=== PATIENT | female | born 1965 | race American Indian/Alaskan Native ===

== ENCOUNTER → 2020-07-02 10:58 | Outpatient (BNVA) | payer OTHER, SELFPAY | PROVIDERS: PCP Nurse Practitioner Family; Visit Provider Internal Medicine | DX: M25.50 Pain in unspecified joint (principal); Z11.1 Encounter for screening for respiratory tuberculosis; Z11.59 Encounter for screening for other viral diseases; R76.8 Other specified abnormal immunological findings in serum | CPT/HCPCS: 99204 ==

== ENCOUNTER 2020-07-02 13:03 | Outpatient (CLI) | payer OTHER, SELFPAY ==
--- NOTE | 2020-07-02 13:10 | XR_ITS ---
WS: [id number] TECHNIQUE: 2 views of the right hand CLINICAL INFORMATION: M25.50 - Pain in unspecified joint COMPARISON: None. FINDINGS: Normal metacarpals. Normal MCP joint. Metacarpal heads are normal in appearance. Mild IP joint narrow ing.. No evidence of acute fracture or dislocation. Radiocarpal joint: Mild degenerative narrowing Carpal bones: Mild degenerative narrowing at the first CMC. XR/XR hand RT 2V [id number] IMPRESSION: 1. Mild degenerative arthritis as described above. No significant erosive obrien ges.
--- NOTE | 2020-07-02 13:10 | XR_ITS ---
WS: [id number] CERVICAL SPINE FLEXION EXTENSION TECHNIQUE: 3 views of the cervical spine: lateral neutral, flexion and extension views. CLINICAL INFORMATION: M25.50 - Pain in unspecified joint COMPARISON: None. FINDINGS: Straightening of the normal cervical lordosis. Mild spondylitic changes. Mild disc space narrowing at C5-C6 and C6-C7. Normal prevertebral soft tissues. Normal C1-C2 articulation. No instability on flex ion extension. Posterior elements are normal. No other significant findings. XR/XR cervical spine fl/ex [id number] IMPRESSION: No instability on flexion extension.
--- NOTE | 2020-07-02 13:10 | XR_ITS ---
WS: [id number] TECHNIQUE: 2 views of the left hand CLINICAL INFORMATION: M25.50 - Pain in unspecified joint COMPARISON: None. FINDINGS: Normal metacarpals. Normal MCP joint. Metacarpal heads are normal in appearance. Mild IP joint narrow ing. No evidence of acute fracture or dislocation. Radiocarpal joint: Mild narrowing Carpal bones: Normal. XR/XR hand LT 2V [id number] IMPRESSION: Mild radiocarpal and IP joint narrowing. No erosive changes.
--- NOTE | 2020-07-02 13:10 | XR_ITS ---
WS: [id number] SI JOINTS TECHNIQUE: 3 views of the sacroiliac joints CLINICAL INFORMATION: L40.9 - Psoriasis, unspecified COMPARISON: None. FINDINGS: Mild degenerative arthritis sacroiliac joints. No significant periarticular erosions. Mild marginal s clerosis. Mild degenerative arthritis both hips with joint space narrowing. XR/XR sacroiliac jts m 3V [id number] IMPRESSION: Mild degenerative arthritis sacroiliac joints. No significant periarticular ero sions.
== END 2020-07-02 13:04 | disposition home or self-care (01) ==
LOC: RADWPI 13:07
PROVIDERS: PCP Nurse Practitioner Family; Visit Provider Internal Medicine
DX: M25.50 Pain in unspecified joint (principal); L40.9 Psoriasis, unspecified; M46.1 Sacroiliitis, not elsewhere classified; M19.041 Primary osteoarthritis, right hand
CPT/HCPCS: 72040; 72202; 73120; 82550; 82728; 82955; 83540; 85651; 86480; 86704; 86803; 86812; 87340

== ENCOUNTER → 2020-08-25 12:12 | Outpatient (BNVA) | payer OTHER, SELFPAY | PROVIDERS: PCP Nurse Practitioner Family; Visit Provider Internal Medicine | DX: R76.8 Other specified abnormal immunological findings in serum (principal); R70.0 Elevated erythrocyte sedimentation rate; M25.50 Pain in unspecified joint; M54.2 Cervicalgia; M18.9 Osteoarthritis of first carpometacarpal joint, unspecified; J47.9 Bronchiectasis, uncomplicated | CPT/HCPCS: 80053; 85025; 85651; 86140; 86160; 99214 ==

== ENCOUNTER → 2020-11-12 11:35 | Outpatient (BNVA) | payer OTHER, SELFPAY | PROVIDERS: PCP Nurse Practitioner Family; Visit Provider Internal Medicine | DX: R76.8 Other specified abnormal immunological findings in serum (principal); M25.50 Pain in unspecified joint; R70.0 Elevated erythrocyte sedimentation rate; M54.2 Cervicalgia; R94.5 Abnormal results of liver function studies; Z79.899 Other long term (current) drug therapy | CPT/HCPCS: 36415; 80053; 82550; 82728; 83540; 85025; 85651; 99214 ==

== ENCOUNTER → 2020-11-20 13:37 | Outpatient (BNVA) | payer OTHER, SELFPAY | PROVIDERS: PCP Nurse Practitioner Family; Referring Provider Internal Medicine; Visit Provider Anesthesiology Pain Medicine | DX: G89.29 Other chronic pain (principal); M54.2 Cervicalgia; Z79.899 Other long term (current) drug therapy | CPT/HCPCS: 99204 ==

== ENCOUNTER → 2020-12-18 14:00 | Outpatient (BNVA) | payer OTHER, SELFPAY | PROVIDERS: PCP Nurse Practitioner Family; Visit Provider Anesthesiology Pain Medicine | DX: G89.29 Other chronic pain (principal); M54.12 Radiculopathy, cervical region; M50.90 Cervical disc disorder, unspecified, unspecified cervical region | CPT/HCPCS: 99214 ==

== ENCOUNTER → 2021-02-12 15:25 | Outpatient (BNVA) | payer OTHER, SELFPAY | PROVIDERS: PCP Nurse Practitioner Family; Visit Provider Internal Medicine | DX: R76.8 Other specified abnormal immunological findings in serum (principal); M54.2 Cervicalgia; R70.0 Elevated erythrocyte sedimentation rate; M25.50 Pain in unspecified joint; Z79.899 Other long term (current) drug therapy | CPT/HCPCS: 99213; 99214 ==

== ENCOUNTER → 2021-03-26 13:38 | Outpatient (BNVA) | payer OTHER, SELFPAY | PROVIDERS: PCP Nurse Practitioner Family; Visit Provider Internal Medicine | DX: M25.50 Pain in unspecified joint (principal); R76.8 Other specified abnormal immunological findings in serum; Z79.899 Other long term (current) drug therapy | CPT/HCPCS: 36415; 80053; 85025; 85651; 86140 ==

== ENCOUNTER → 2021-07-07 16:46 | Outpatient (BNVA) | payer OTHER, SELFPAY | PROVIDERS: PCP Nurse Practitioner Family; Visit Provider Internal Medicine | DX: R76.8 Other specified abnormal immunological findings in serum (principal); R70.0 Elevated erythrocyte sedimentation rate; M25.569 Pain in unspecified knee; M25.571 Pain in right ankle and joints of right foot; Z79.899 Other long term (current) drug therapy; Z82.61 Family history of arthritis | CPT/HCPCS: 80053; 85025; 85651; 86140 ==

== ENCOUNTER 2022-03-25 18:24 | Outpatient (CLI) | payer OTHER, SELFPAY ==
--- NOTE | 2022-03-25 18:32 | XRR_ITS ---
PROCEDURE INFORMATION: Exam: XR Lumbosacral Spine Exam date and time: 03/25/2022 6:37 PM Age: 56 years old Clinical indication: Low back pain; Additional info: R70.0 - elevated erythrocyte sedimentation rate TECHNIQUE: Imaging protocol: Radiologic exam of the lumbosacral spine. Views: 2 or 3 views. COMPARISON: CR XR sacroiliac jts m 3V [id number] 07/02/2020 1:15 PM FINDINGS: Bones/joints: 5 [id number] vertebral bodies. Stable mild to moderate degenerative changes at the left sacroiliac joint. Vertebral body height is maintained. No subluxation. Normal bone mineralization. Small/moderate marginal osteophytes in the lumbar spine. No acute fracture. Soft tissues: Surgical clips in the pelvis. No paravertebral soft tissue abnormality. No radiopaque foreign body. Intraperitoneal space: Surgical clips in the right upper quadrant, consistent with a previous cholecystectomy. XR/XR lumbar spine 2-3V* [id number] IMPRESSION: 1. No acute fracture of the lumbar spine. CT scan would be recommended if there is continuing clinical concern for fracture. 2. Multilevel degenerative changes of varying severity in the visualized spine. 3. Stable mild to moderate degenerative changes at the left sacroiliac joint. 4. Incidental/nonacute findings are listed in the report.
[2022-03-25 19:04] LABS: Basophils # 0.1 10^3/uL (0.0-0.1); Eosinophils # 0.3 10^3/uL (0.0-0.8); Hematocrit 43.1 % (37.0-47.0); Hemoglobin 13.9 g/dL (11.5-15.3); Lymphocytes # 1.5 10^3/uL (0.8-4.8); Lymphocytes % 30.3 %; Mean Corpuscular HGB Conc 32.3 g/dL (30.0-36.0); Mean Corpuscular Hemoglobin 31.3 pg (28.0-34.0); Mean Corpuscular Volume 97.1 fl (81-99); Mean Platelet Volume 9.4 fL (7.4-10.4); Monocytes # 0.4 10^3/uL (0.2-0.9); Monocytes % 8.5 %; Neutrophils # 2.62 10^3/uL (1.8-7.7); Nucleated Red Blood Cells % 0 %; Platelet Count 251 10^3/cmm (130-400); Red Blood Count 4.44 10^6/uL (4.1-5.3); Red Cell Distribution Width 13.1 % (12.1-15.1); White Blood Count 4.9 10^3/uL (4.0-10.0)
[2022-03-25 19:33] LABS: Erythrocyte Sedimentation Rate 5 mm/hr (0-15)
[2022-03-25 19:41] LABS: Alanine Aminotransferase 31 U/L (0-33); Albumin Level 4.2 g/dL (3.5-5.2); Alkaline Phosphatase 98 U/L (35-105); Anion Gap 13.1 (5-19); Aspartate Amino Transferase 33 U/L (0-32); Blood Urea Nitrogen 16 mg/dL (6-20); Calcium 9.8 mg/dL (8.5-10.5); Carbon Dioxide 27 mmol/L (22-29); Chloride 104 mmol/L (98-107); Globulin 3.9 g/dL (1.3-4.6); Glomerular Filtration Rate 85.9 mL/min (90-130); Glucose 92 mg/dL (65-115); Osmolality Calculated 291 mOsm/kg (285-295); Potassium 4.1 mmol/L (3.5-5.1); Sodium 140 mmol/L (136-145); Total Bilirubin 0.4 mg/dL (0.15-1.2); Total Protein 8.1 g/dL (6.6-8.7)
== END 2022-03-25 18:25 | disposition home or self-care (01) ==
LOC: RAD 18:27
PROVIDERS: PCP Nurse Practitioner Family; Visit Provider Internal Medicine
DX: R70.0 Elevated erythrocyte sedimentation rate (principal); M25.50 Pain in unspecified joint; M54.12 Radiculopathy, cervical region; M54.2 Cervicalgia; M54.50 Low back pain, unspecified; R76.8 Other specified abnormal immunological findings in serum
CPT/HCPCS: 36415; 72100; 80053; 85025; 85651; 86140

== ENCOUNTER → 2022-10-04 15:09 | Outpatient (BNVA) | payer OTHER, SELFPAY | PROVIDERS: PCP Nurse Practitioner Family; Visit Provider Internal Medicine | DX: R76.8 Other specified abnormal immunological findings in serum (principal); R70.0 Elevated erythrocyte sedimentation rate; M54.50 Low back pain, unspecified | CPT/HCPCS: 36415; 80053; 81001; 85025; 85652; 86140; 87077; 87086; 87186 ==

== ENCOUNTER 2023-01-17 14:21 | Outpatient (CLI) | payer OTHER, SELFPAY ==
--- NOTE | 2023-01-17 15:15 | MR_ITS ---
WS: [id number] MRI LUMBAR SPINE NONCONTRAST HISTORY: M54.16 - Radiculopathy, lumbar region COMPARISON: None available. TECHNIQUE: Sagittal and axial multisequence imaging is submitted. Normal lumbar alignment with no compression fractures or marrow edema. Disc spaces and vertebral body heights are well-preserved. Conus terminates normally at L1-2 disc level. L1-L2: Normal. L2-L3: Normal. L3-L4: Mild facet arthritis. No stenosis. L4-L5: Mild facet arthritis. No stenosis. L5-S1: Mild annular disc bulging. Very slight encroachment but no contact on the traversing S1 nerve roots. Paravertebral soft tissues are normal. MR/MR lumbar spine wo con* [id number] IMPRESSION: 1. No significant central or foraminal stenosis. 2. No lumbar spine fracture. 3. Mild facet joint arthritis from L3-4 to L5-S1.
== END 2023-01-17 14:22 | disposition home or self-care (01) ==
LOC: RAD 14:27
PROVIDERS: PCP Nurse Practitioner Family; Visit Provider Anesthesiology Pain Medicine
DX: M54.16 Radiculopathy, lumbar region (principal); M47.817 Spondylosis without myelopathy or radiculopathy, lumbosacral region; M16.9 Osteoarthritis of hip, unspecified
CPT/HCPCS: 72148; 77002

== ENCOUNTER → 2023-02-01 17:00 | Outpatient (BNVA) | payer OTHER, SELFPAY | PROVIDERS: PCP Nurse Practitioner Family; Visit Provider Internal Medicine | DX: M54.12 Radiculopathy, cervical region (principal); R76.8 Other specified abnormal immunological findings in serum; R70.0 Elevated erythrocyte sedimentation rate; M54.50 Low back pain, unspecified | CPT/HCPCS: 36415; 80053; 85025; 85651; 86140 ==

== ENCOUNTER → 2023-06-06 14:16 | Outpatient (BNVA) | payer OTHER, SELFPAY | PROVIDERS: PCP Nurse Practitioner Family; Visit Provider Internal Medicine | DX: R76.8 Other specified abnormal immunological findings in serum (principal); R70.0 Elevated erythrocyte sedimentation rate; M25.50 Pain in unspecified joint; M54.50 Low back pain, unspecified; M47.816 Spondylosis without myelopathy or radiculopathy, lumbar region; M54.2 Cervicalgia; G89.29 Other chronic pain; M19.049 Primary osteoarthritis, unspecified hand; R74.01 Elevation of levels of liver transaminase levels; R94.5 Abnormal results of liver function studies; M65.30 Trigger finger, unspecified finger | CPT/HCPCS: 36415; 80053; 80074; 82550; 82728; 83540; 84100; 85025; 85651; 86140; 86160 ==

== ENCOUNTER → 2023-08-29 15:16 | Outpatient (BNVA) | payer OTHER, MEDICAID, SELFPAY | PROVIDERS: PCP Nurse Practitioner Family; Visit Provider Anesthesiology Pain Medicine | DX: M47.896 Other spondylosis, lumbar region (principal); M54.9 Dorsalgia, unspecified; G89.29 Other chronic pain | CPT/HCPCS: 72110 ==

== ENCOUNTER → 2025-05-06 16:10 | Outpatient (BNVA) | payer MEDICAID, SELFPAY | PROVIDERS: PCP Nurse Practitioner Family; Visit Provider Internal Medicine Rheumatology | DX: Z79.899 Other long term (current) drug therapy (principal) | CPT/HCPCS: 36415; 80076; 82306; 82565; 83520; 85025; 85651; 86140; 86200; 86431; 86480; 86704; 86803; 87340 ==